=== PATIENT | female | born 1995 | race Caucasian/White ===

== ENCOUNTER 2017-10-17 06:24 | Emergency (ER) | payer MEDICAID ==
[~2017-10-17] VITALS: Ht 162.6 cm; Wt 56.7 kg
[2017-10-17 06:42] VITALS: BP_SYST 125
[2017-10-17] MEDS ORDERED: ONDANSETRON HCL 4 MG/2 ML VIAL IVP ONE (06:45)
[2017-10-17] MEDS ORDERED: NACL 0.9% 1,000 ML IV ONE (06:45)
[2017-10-17] MEDS ORDERED: LORazepam 2 MG/ML VIAL (FOR ER USE) IVP ONE ×2 (06:45→07:00)
[2017-10-17 08:05] VITALS: BP_SYST 110
== END 2017-10-17 08:05 | disposition home or self-care (01) ==
LOC: SED 06:24
DX: F41.9 Anxiety disorder, unspecified (principal); F10.10 Alcohol abuse, uncomplicated
CPT/HCPCS: 96361; 96374; 96375; 99284; J2060; J2405